=== PATIENT | female | born 1930 | race Caucasian/White ===

== ENCOUNTER 2017-02-27 10:37 | Observation (INO) | payer OTHER ==
[~2017-02-27] VITALS: Ht 152.4 cm; Wt 43.4 kg
[~2017-02-27 10:37] MED LIST: ACETAMINOPHEN325 MG PO; ACIDOPHILUS PEARLS; ASPIRIN ADULT L81 MG PO; ATENOLOL25 MG PO; BILBERRY100 MG PO; CALCIUM + D600 MG; CELEXA20 MG PO; CRANBERRY300 MG PO; CVS OMEPRAZOLE20 MG PO; FENTANYL25 MCG/HR TOP; KLOR-CON M1010 MEQ PO; MIRALAX EQUIVAL17 GM PO; MIRTAZAPINE15 MG PO; OXYCODONE HCL5 MG PO; PHENERGAN EQUIV25 MG PO; PRESERVISION AREDS; PRESERVISION AREDS PO; TRAMADOL HCL50 MG PO; VALIUM5 MG PO; ZOFRAN ODT4 MG PO
--- NOTE | 2017-02-27 11:43 | DIAGNOSTIC IMAGING REPORT ---
PROCEDURE: XR CHEST 1 VIEW INDICATION: FEVER TECHNIQUE: Single view chest. 1114 hours COMPARISON: 01/03/2016 FINDINGS: Mildly kyphotic patient. Stable cardiomediastinal contour. No central venous congestion. Interval clearance of retrocardiac and right infrahilar opacities. No acute consolidation, effusion, or pneumothorax. Demineralized osseous structures. Pedicle screws in the lower thoracic and upper lumbar vertebral bodies. IMPRESSION: 1. No acute disease. 2. Interval clearance of prior bilateral parenchymal opacities.
--- NOTE | 2017-02-27 14:42 | ED CLINICAL REPORT ---
Clinical Report - Physicians/Mid Levels [facility] [address] [place] [address] 02/27/2017 10:38 Patient: POLY LEOS Time Seen: 10:39. Arrived- By ambulance. Historian- patient and EMS personnel. HISTORY OF PRESENT ILLNESS Chief Complaint: FEVER. This started yesterday. She has had measured fever of 103 F. Temperature not treated prior to arrival. No muscle aches, loss of appetite, chest pain, dyspnea or cough. No diarrhea, skin breakdown noted or joint pain. She has had fatigue, decreased oral intake and altered mental status. No decreased urine output. She has had skin rash (Pt has zoster on her R face.). Additional history - No known contact with a sick individual. Has not recently been ill. She is not immunocompromised. No organ transplant. No recent hospitalization. No new medication recently administered. No history of cancer. No indwelling line. No recent travel. No known exposure to an animal. No drug use. No alcohol recently. No Long catheter. Similar symptoms previously: None. Recent medical care: Not recently seen/assessed. REVIEW OF SYSTEMS No anorexia, weight loss, palpitations, calf pain or sputum production. No nausea, constipation, black stools, difficulty with urination or flank pain. No vomiting, headache, sinus pain, sore throat or easy bruising. No enlarged lymph nodes, neck pain or back pain. All systems otherwise negative, except as recorded above. PAST HISTORY POLST with DNR/limited interventions. Problems: Urinary Retention. Restless Legs Syndrome. Osteoporosis. Anxiety Reaction. Hypercholesterolemia. Gerd. Parkinson's Disease. Constipation. Congestive Heart Failure. Peptic Ulcer Disease. Hypertension. Immunizations. Additional Surgeries: Back Surgery. Tonsillectomy. Tubal Ligation. Medications: Aspirin Oral (Tablet Chewable 81 mg), daily. Atenolol Oral 25 mg, daily. Bilberry Oral (Capsule 100 mg). Calcium 500/D Oral daily. CeleXA Oral 20 mg, daily. Ranitidine HCl Oral 150 mg, 2x a day. Klor-Con Oral 10 MEQ daily. TraMADol HCl Oral 50 mg, Q6H as needed. Multiple Vitamins Oral x2 daily. Cranberry Oral 300mg 1 capsule, 3x a day. Acidophilus Pearls Oral x1 in am. OxyCODONE HCl Oral (Tablet 5 mg) 2-3 tablets, at bedtime. Nystatin External. Miralax powder daily. Baclofen Oral 10 mg, 3x a day. Citrucel Oral 1 scoop twice daily. FentaNYL Transdermal 25 mcg/hr, every 72 hours. Acyclovir Oral 800 mg, x5 daily . Nortriptyline HCl Oral 10 mg, 1-2 in evening. Allergies: Daypro, elevate my liver. Lipitor. (elevated liver enzymes). SOCIAL HISTORY Never smoker. No alcohol use or drug use. ADDITIONAL NOTES The nursing notes have been reviewed. PHYSICAL EXAM Vital Signs: 02/27/2017 10:43 BP: 169/67. HR: 69. RR: 13. O2 saturation: 98%. Temp: 100.3 F. Have been reviewed. Appearance: No acute distress. ( drowsy, but answers questions). Eyes: Pupils equal, round and reactive to light. Eyes normal inspection. ENT: Nose normal. Pharynx normal. Uvula midline. Neck: Normal inspection. Neck supple. CVS: Normal heart rate and rhythm. Heart sounds normal. Pulses normal. Respiratory: No respiratory distress. Breath sounds normal. Abdomen: Soft and nontender. Back: No tenderness. Skin: Skin warm and dry. Normal skin color. Normal skin turgor. (Pt has a vesicular rash with an erythematous base on her R scalp and forehead.). Extremities: Extremities nontender. Neuro: (Pt answers questions on her own and moves all 4 extremities.). LABS, X-RAYS, AND EKG Chest X-ray: No acute disease. Normal lung markings present. Normal heart size. Mediastinum normal. Great vessels normal. Soft tissues normal. No infiltrate. No fracture. No bony lesion present. Views: AP (portable). Technique: good. The X-rays were independently viewed by me, interpreted by the radiologist and contemporaneously by me and discussed with the radiologist. A comparison with prior films reveals that the findings are unchanged. Laboratory Tests: UA-Culture if indicated: (JANY: 02/27/2017 11:45) ( MsgRcvd 02/27/2017 12:52) Final results Test Result Flag Units (Reference) URINE COLOR YELLOW URINE APPEARANCE CLEAR URINE GLUCOSE NEGATIVE (NEGATIVE) URINE BILIRUBIN NEGATIVE (NEGATIVE) URINE KETONE NEGATIVE (NEGATIVE) URINE SPECIFIC GRAVITY 1.010 (1.010-1.030) URINE PH 7.0 (5.0-8.0) URINE PROTEIN 1+ (NEGATIVE) URINE UROBILINOGEN 1.0 EU/dL (0.2-1.0) URINE NITRITE NEGATIVE (NEGATIVE) URINE BLOOD NEGATIVE (NEGATIVE) URINE LEUK ESTERASE NEGATIVE (NEGATIVE) URINE RBC NONE SEEN rbc/hpf (0-1) URINE WBC 3-5 wbc/hpf (0-1) URINE EPITHELIAL CELLS 0-1 EPI/hpf (0-5) URINE BACTERIA FEW (1+) (NONE SEEN) URINE COMMENT CULT NOT INDICATED URINE CULTURES ARE SET-UP BASED ON THE FOLLOWING CRITERIA:POSITIVE NITRITEPOSITIVE LEUKOCYTE ESTERASEGREATER THAN 10 WHITE BLOOD CELLSMODERATE (2+) OR GREATER BACTERIA CBC w Diff: (JANY: 02/27/2017 12:00) ( [facility] 13[facility]34) Final results Test Result Flag Units (Reference) WHITE BLOOD COUNT 7.1 K/uL (4.5-11.5) RED BLOOD COUNT 4.27 M/uL (4.00-5.20) HEMOGLOBIN 13.2 gm/dL (12.0-16.0) HEMATOCRIT 39.5 % (36.0-46.0) MEAN CELL VOLUME 93 fL (80-100) MEAN CORPUSCULAR HGB 31 pg (26-34) MEAN CORPUSCULAR HGB CONC 33 g/dL (31-37) RED CELL DISTRIBUTION WIDTH 13.3 % (11.6-14.8) PLATELET COUNT 184 K/uL (150-400) POLY % 71 % (50-75) BAND % 1 % (0-8) LYMPH 18 L % (25-40) MONO 10 % (3-14) EOSINOPHIL % 0 % (0-4) BASOPHIL % 0 % (0-2) METAMYELOCYTE % 0 % (0-1) MYELOCYTE 0 % (0-1) OTHER CELL TYPE 0 Lactate, Serum: (JANY: 02/27/2017 12:30) ( [facility] 02/27/2017 13:13) Final results Test Result Flag Units (Reference) LACTIC ACID 0.8 mmol/L (0.4-2.0) CMP: (JANY: 02/27/2017 12:00) ( MsgRcvd 02/27/2017 13:13) Final results Test Result Flag Units (Reference) GLUCOSE 110 mg/dL (70-110) BUN 21 H mg/dL (7-18) CREATININE 0.8 mg/dL (0.6-1.3) Estimated GFR >60 mL/min Estimated GFR- >60 mL/min Note: Persistent reduction over 3 months in eGFR<60 mL/min/1.73 m2 defines CKD. Patients with eGFR values>=60 mL/min/1.73 m2 may also have CKD if evidence ofpersistent proteinuria. Additional information may be foundat www.kidney.org. SODIUM 133 L mmol/L (136-145) POTASSIUM 3.6 mmol/L (3.5-5.1) CHLORIDE 95 L mmol/L (98-107) CARBON DIOXIDE 30 mmol/L (21-32) CALCIUM 8.9 mg/dL (8.5-10.1) TOTAL PROTEIN 6.6 g/dL (6.4-8.2) ALBUMIN 3.2 L g/dL (3.3-5.0) BILIRUBIN, TOTAL 0.5 mg/dL (0.0-1.0) ALKALINE PHOSPHATASE 72 U/L (46-116) AST (SGOT) 34 U/L (15-37) ALT (SGPT) 20 U/L (12-78) Rapid Influenza Screen: (JANY: 02/27/2017 12:25) ( MsgRcvd 02/27/2017 13:07) Final results SPECIMEN DESCRIPTION: SWAB Test Result Flag Units (Reference) RAPID INFLUENZA SCREEN DATE: 02/27/17 INFLUENZA A: NEGATIVE SCREEN FOR INFLUENZA A INFLUENZA B: NEGATIVE SCREEN FOR INFLUENZA B . Pulse Oximetry: 02/27/2017 10:43 O2 saturation: 98%. (FIO2 - room air). Interpretation: normal. PROGRESS AND PROCEDURES Course of Care: Pt was worked up for her fever, without a specific source being identified, beyond the pt's shingles outbreak. and daughter (caregiver) arrived, and stated the pt is too weak to help transfer herself, and that they can't handle her at home. They stated they do not want the pt in assisted living, even temporarily, but would be open to assistance by a home health staff. land planner Keyon did come down to the ED and speak with the family, but no arrangement could be made for this on a same-day basis (and daughter did not feel she could care for the pt tonight). Therefore, as family refused to take the pt home, feeling they could not care for her, and as pt was febrile with ALOC and cx pending, pt was admitted to the hospital. Discussed case with patient's primary care provider, (Megan). Reviewed test results. Agreed upon treatment plan and decision to admit. Health care provider will see patient in hospital. Patient and family counseled in person regarding the patient's stable but serious condition, test results, diagnosis and need for admission. Concerns were addressed. Old medical records reviewed. Disposition: Admitted. Condition: stable and serious. CLINICAL IMPRESSION Acute fever. Acute mental status change with lethargy. Acute generalized weakness. Herpes zoster. (Electronically signed by Holly Chen MD 03/01/2017 19:33) Addenda for POLY LEOS VisitID: [id number] Date: 02/27/2017 02/27/2017 15:28 87 yr old female pt in ED with chief complaint of weakness and fever. Pt has shingles and currently being treated for it. Pt has Parkinson's as well. Spoke to daughter and and they stated that pt lives with daughter. Daughter is the primary caregiver and takes care of pt. Pt requires assistance with transfer and toileting but per daughter pt is so weak she can't even swallow or stand up. Daughter's goal is to take pt back home, they are not open to going to SNF or assisted living. Informed her that pt will not recover overnight and pt will still be weak. Per daughter as long as pt can start drinking then she can take pt home and cont taking care of her. Explained OBS vs Inpatient to daughter and she understood. Spoke to Dr Guzman and his plan is to keep pt overnight for observation and will dc home with home health in the morning. Daughter is aware and okay with the plan. They want [facility] to follow pt at home. Will f/u with pt when she is in Acute Care. (Electronically signed by Keyon Cardozo R.N. - 02/27/2017 15:28)
--- NOTE | 2017-02-27 14:42 | ED NURSING NOTES ---
Clinical Report - Nurs[facility] [address] [place] [address] 02/27/2017 10:38 Patient: POLY LEOS TRIAGE Triage time 10:43. Acuity: LEVEL 3. Chief Complaint: ALTERED MENTAL STATUS and (fever and shingles). Alert. No acute distress. SEPSIS SCREEN: Sepsis Screen. Negative (no infection suspected/documented). ERICA COMA SCORE: Erica Coma Scale: 14- eyes open spontaneously (4); best verbal response- disoriented (4); best motor response- obeys commands (6). --11:00 Ekta Hollis R.N. 10:43 02/27/17. BP: 169/67. HR: 69. RR: 13. O2 saturation: 98%. Temp: 100.3 F. Pain level now 0/10. --11:00 Ekta Hollis R.N. ( Pt. states she is at the hospital on triage but will not answer further questioning. Family states she has a hard time communicating lately and has had memory loss. She is also incontinent of stool and urine since Saturday.). --11:12 Ekta Hollis R.N. 10:43. --13:37 Ekta Hollis R.N. Weight: 49.8 kg estimated. Height/Length: 64 inches Estimated. BMI: 18.9. --10:45 Ekta Hollis R.N. Medications Nortriptyline HCl Oral 10 mg, 1-2 in evening. --10:50 Ekta Hollis R.N. Acyclovir Oral 800 mg, x5 daily . --10:51 Ekta Hollis R.N. FentaNYL Transdermal 25 mcg/hr, every 72 hours. --10:51 Ekta Hollis R.N. Citrucel Oral 1 scoop twice daily. --10:52 Ekta Hollis R.N. Baclofen Oral 10 mg, 3x a day. --10:52 Ekta Hollis R.N. Miralax powder daily. --10:53 Ekta Hollis R.N. Nystatin External. --10:53 Ekta Hollis R.N. OxyCODONE HCl Oral (Tablet 5 mg) 2-3 tablets, at bedtime. --10:53 Ekta Hollis R.N. Acidophilus Pearls Oral x1 in am. --10:54 Ekta Hollis R.N. Cranberry Oral 300mg 1 capsule, 3x a day. --10:55 Ekta Hollis R.N. Multiple Vitamins Oral x2 daily. --10:55 Ekta Hollis R.N. TraMADol HCl Oral 50 mg, Q6H as needed. --10:55 Ekta Hollis R.N. Klor-Con Oral 10 MEQ daily. --10:56 Ekta Hollis R.N. Ranitidine HCl Oral 150 mg, 2x a day. --10:56 Ekta Hollis R.N. CeleXA Oral 20 mg, daily. --10:57 Ekta Hollis R.N. Calcium 500/D Oral daily. --10:57 Ekta Hollis R.N. Bilberry Oral (Capsule 100 mg). --10:58 Ekta Hollis R.N. Atenolol Oral 25 mg, daily. --10:58 Ekta Hollis R.N. Aspirin Oral (Tablet Chewable 81 mg), daily. --10:58 Ekta Hollis R.N. Allergies Daypro, elevate my liver. Lipitor. (elevated liver enzymes) --10:58 Ekta Hollis R.N. History Arrived by EMS. Historian: patient. Unaccompanied. Primary physician (Megan). This started 2 days ago. ( Pt. has a polst on chart: DNR). Treatment HOCKEY INSTRUCTOR: None. ( per EMS: pt has had a fever of 103.0 at home since mon. She usually walks around the home and is more active but she has had decreased LOC since mon.). PAST MEDICAL HX: Immunizations: up-to-date. SOCIAL HX: Smoker - current status unknown. Alcohol use. (unknown). No infectious disease exposure. ABUSE ASSESSMENT: No report of abuse. NUTRITIONAL RISK ASSESSMENT: The nutritional risk assessment revealed no deficiencies. LEARNING NEEDS ASSESSMENT: The learning needs assessment revealed no barriers. FUNCTIONAL ASSESSMENT: Functional assessment performed: requires total care with the activities of daily living; cognitive impairment- Alzheimer's disease and senile dementia. --11:00 Ekta Hollis R.N. SOCIAL HX: Smoker- current status unknown. No alcohol use or drug use. FUNCTIONAL ASSESSMENT: Functional assessment performed. family at the bedside: correctio to prior: pt. is total care and does not ambulated. She can assist with transfer. Has memory loss and difficulty feeding herself. --11:08 Ekta Hollis R.N. FALL RISK ASSESSMENT: Fall risk assessment completed per protocol. Risk factors identified include patient medications, age greater than 65 years, history of fall and impairment of mobility, sight and hearing. Fall interventions initiated. Patient placed on stretcher. Side rails up x2. Brakes on Bed in low position. Patient visible from nurses' station and identified as a fall risk by ID band. Family at bedside. Call light in reach of patient and family. Instructed not to get up without assistance. --13:37 Ekta Hollis R.N. PROBLEMS: Hematuria. Aspiration Pneumonia. Diarrhea. Urinary Retention. Restless Legs Syndrome. Osteoporosis. Pneumonia. Anxiety Reaction. Hypercholesterolemia. Gerd. Parkinson's Disease. Constipation. Dysuria. Back Pain. Congestive Heart Failure. Hyponatremia. Weakness. UTI - Urinary Tract Infection. Peptic Ulcer Disease. Hypertension. --10:59 Ekta Hollis R.N. ADDITIONAL SURGERIES: Back Surgery. Tonsillectomy. Tubal Ligation. --10:59 Ekta Hollis R.N. Interventions ID band on patient. Transported via stretcher. --11:00 Ekta Hollis R.N. PHYSICAL ASSESSMENT To room via stretcher. GENERAL / NEURO / PSYCH: Alert. Appears in no acute distress. The patient is disoriented (pt is alert but confused.). Patient's speech is slurred. RESPIRATORY: Respirations not labored. CVS: Capillary refill less than 2 seconds. GI / : Abdomen soft and nontender. SKIN: Skin is warm and dry. --11:02 Ekta Hollis R.N. SKIN: Skin rash (right side of face). --11:09 Ekta Hollis R.N. SKIN: Skin breakdown noted on coccyx; pressure sore with shallow crater (Stage II) noted. (HOCKEY INSTRUCTOR: pictures documented and in chart.). --12:25 Ekta Hollis R.N. NURSING PROGRESS NOTES 10:43. monitoring engineer, pulse oximeter and NIBP monitor placed on patient; child monitor- Lead II; monitor alarms on. Patient gowned. Head of bed elevated. Two patient identifiers checked. Call light placed in reach. Side rails up x 2. Bed placed in lowest position. Brakes of bed on. Patient ready for evaluation- chart flagged. --11:02 Ekta Hollis R.N. Portable chest x-ray ordered, performed and shown to the ED physician. --11:13 Ekta Hollis R.N. 11:09 02/27/2017 Two (2) unsuccessful IV access attempts including the left antecubital space and forearm. Applied bandaid and manual pressure. --11:14 Pema Messer R.N. 11:15. 14 fr fields catheter placed. Reason for indwelling catheter: patient's decreased level of consciousness. During procedure hand hygiene observed and sterile equipment and aseptic technique used. Return of 100 mL yellow-colored clear urine; attached to bedside drainage bag positioned below the bladder and secured with tape and velcro. It was a complicated placement. She tolerated procedure well (x2 unsuccessful attemts. X2 Rns assisted with fields placement). --12:20 Ekta Hollis R.N. 11:16 02/27/17. Temp: 101 F (rectal). --12:21 Ekta Hollis R.N. 11:16 02/27/2017 Acetaminophen (Peds) (Acetaminophen) MA 650 mg given. Allergies verified and confirmed 5 rights. (v.o. by provider for 650mg MA). --12:21 Ekta Hollis R.N. 11:22 02/27/2017 Site #1 started via IV in the right antecubital space with an 22g angiocath, with aseptic technique and good blood return; one attempt. Blood drawn: rainbow set and cultures x1. Labeled in the presence of the patient and sent to the lab. Saline lock flushed with 10 mL saline (lactate drawn.). --12:22 Ekta Hollis R.N. 11:25 02/27/2017 Started bag #1 1000 mL IV Fluids IV NS (Saline); at 1000 mL/hr over 1 hour(s) via site #1 via IV pump. Allergies verified and confirmed 5 rights. IV patency established. IV site checked: no pain, redness, or swelling. IV flushed thoroughly pre- and post-medication administration. --12:23 Ekta Hollis R.N. 11:26 02/27/2017 Toradol IVP 30 mg given over 2 minute(s) via site #1. Allergies verified and confirmed 5 rights. IV patency established. IV site checked: no pain, redness, or swelling. IV flushed thoroughly pre- and post-medication administration. --12:23 Ekta Hollis R.N. 12:00. ( changed pt. linens and repositioned pt. to left side lying. X1 2 RN's assisted.). --12:24 Ekta Hollis R.N. 12:25 02/27/17. BP: 187/61. HR: 70. RR: 14. O2 saturation: 97%. --12:25 Ekta Hollis R.N. Patient ID band checked for patient name, birthdate and medical record number: patient confirmed. Flu swab obtained by RN via nasal pharyngeal swab. Labeled in the presence of the patient and sent to lab. --12:28 Ekta Hollis R.N. ( lab at the bedside to draw cultures.). --12:28 Ekta Hollis R.N. 12:30 02/27/2017 IV Fluids IV NS Discontinued: bag #1 infused. Total amount infused: 1000 mL. IV patency established. IV site checked: no pain, redness, or swelling. IV flushed thoroughly. --14:47 Ekta Hollis R.N. 13:24 02/27/2017 Acyclovir PO 800 mg given. Allergies verified and confirmed 5 rights. --13:24 Ekta Hollis R.N. ( repositioned pt. to right side lying. x2 Rns.). --13:31 Ekta Hollis R.N. 13:24 02/27/17. BP: 188/81. HR: 97. RR: 16. O2 saturation: 97%. --13:31 Ekta Hollis R.N. ( H/P forms on chart.). --14:25 Nathalie Gustafsonraine, [employer]! Patient and family informed about reason for wait. ( pt. resting quietly.). --15:01 Ekta Hollis R.N. 15:00 02/27/17. BP: 171/68. HR: 75. RR: 17. O2 saturation: 97%. --15:01 Ekta Hollis R.N. ( discharge planning at the bedside with pt and family.). --15:05 Ekta Hollis R.N. ( overview faxed to ICU). --15:32 Nathalie Gustafsonraine, Tech1. Intake & Output IV fluids: 1000 units. Urine, with return of 500 mL yellow-colored clear urine. --16:05 Ekta Hollis R.N. DISPOSITION / DISCHARGE Report was given to a nurse. Report included patient's care, treatment, medications, reviewed medication reconcilliation, and condition (including any recent changes or anticipated changes). All questions were answered. --15:59 Ekta Hollis R.N. Admitted to the Critical Care Unit. --15:59 Ekta Hollis R.N. 16:01 02/27/17. BP: 168/63. HR: 82. RR: 24. O2 saturation: 98%. Temp: 99.1 F. Pain level now 0/10. --16:02 Ekta Hollis R.N. 16:02 02/27/2017 Site #[address] upon admission; patent, no pain and no signs of infiltration. No blood return present. Flushed with 10 mL saline; flushes easily. --16:02 Ekta Hollis R.N. 16:20. Patient's personal items; items were placed in belongings bag and given to the family. --16:37 Ekta Hollis R.N. 16:20. Transported via stretcher by nurse. --16:37 Telma, Ekta, R.N. Locked/Released at 02/27/2017 16:37 by Ekta Hollis R.N.
--- NOTE | 2017-02-27 14:42 | ED ORDER SUMMARY ---
..... Patient: POLY LEOS OrderSheet [facility] VisitID: [id number] [address] [place] [address] 87y, F Registration Date/Time: 02/27/2017 ORDER SHEET Weight: 49.8 kg (estimated) Allergies: Daypro, elevate my liver, Lipitor GENERAL ORDERS: Chest 1V Urgent (10:53 02/27/2017 Jennie WOOD) (Ack 10:57 LNations ER Tech1) (11:13 SReitz R.N.) Administrative Library Assistant (Continuous) (10:53 02/27/2017 Jennie WOOD) (Ack 10:56 LNations ER Tech1) (11:13 SReitz R.N.) Rapid Influenza Screen (Nasal Pharyngeal) (swab) Urgent (10:53 02/27/2017 Jennie WOOD) (Ack 10:57 LNations ER Tech1) (12:27 SReitz R.N.) CBC w Diff Urgent (10:54 02/27/2017 Jennie WOOD) (Ack 10:56 LNations ER Tech1) (12:14 SReitz R.N.) CMP Urgent (10:54 02/27/2017 Jennie WOOD) (Ack 10:56 LNations ER Tech1) (12:14 SReitz R.N.) UA-Culture if indicated Urgent (10:54 02/27/2017 Jennie WOOD) (Ack 10:56 LNations ER Tech1) (12:14 SReitz R.N.) Lactate, Serum Urgent (10:54 02/27/2017 Jennie WOOD) (Ack 10:57 LNations ER Tech1) (12:14 SReitz R.N.) Oxygen (2 L/min) (NC) (10:54 02/27/2017 Jennie WOOD) (Ack 10:56 LNations ER Tech1) (12:23 SReitz R.N.) Pulse oximeter (10:54 02/27/2017 Jennie WOOD) (Ack 10:56 LNations ER Tech1) (11:13 SReitz R.N.) Blood Culture (No) (N/A) Urgent (13:19 02/27/2017 Jennie WOOD) (Ack 13:21 LNations ER Tech1) (13:35 SReitz R.N.) MEDICATION ORDERS: Acetaminophen PO 1,000 mg (NOW) (10:53 02/27/2017 Jennie WOOD) (Ack 11:16 Franklin R.N.) (12:21 Franklin R.N.) Acyclovir PO 800 mg (NOW) (13:00 02/27/2017 Franklin R.N. verbal order read back to Jennie WOOD) (Ack 13:01 Franklin R.N.) (13:24 Franklin R.N.) IV FLUIDS: IV NS : initial bolus 1000 mL (1000 mL/hr), then none - (NOW) (10:53 02/27/2017 Jennie WOOD) (Ack 11:16 Franklin R.N.) (12:23 Franklin R.N.) Toradol IV 30 mg (NOW) (10:53 02/27/2017 Jennie WOOD) (Ack 11:16 Franklin R.N.) (12:23 Franklin R.N.) ORDER SHEET NOTES: [Electronically signed by Ekta Hollis R.N. (16:37 02/27/2017)] [Electronically signed by Holly Chen MD (19:33 03/01/2017)] [Electronically locked/signed by Ekta Hollis R.N. (16:37 02/27/2017)]
--- NOTE | 2017-02-27 14:42 | ED ORDER SUMMARY ---
..... Patient: POLY LEOS OrderSheet [facility] VisitID: [id number] [address] [place] [address] 87y, F Registration Date/Time: 02/27/2017 ORDER SHEET Weight: 49.8 kg (estimated) Allergies: Daypro, elevate my liver, Lipitor GENERAL ORDERS: Chest 1V Urgent (10:53 02/27/2017 Jennie WOOD) (Ack 10:57 LNations ER Tech1) (11:13 SReitz R.N.) Drawing Kiln Supervisor (Continuous) (10:53 02/27/2017 Jennie WOOD) (Ack 10:56 LNations ER Tech1) (11:13 SReitz R.N.) Rapid Influenza Screen (Nasal Pharyngeal) (swab) Urgent (10:53 02/27/2017 Jennie WOOD) (Ack 10:57 LNations ER Tech1) (12:27 SReitz R.N.) CBC w Diff Urgent (10:54 02/27/2017 Jennie WOOD) (Ack 10:56 LNations ER Tech1) (12:14 SReitz R.N.) CMP Urgent (10:54 02/27/2017 Jennie WOOD) (Ack 10:56 LNations ER Tech1) (12:14 SReitz R.N.) UA-Culture if indicated Urgent (10:54 02/27/2017 Jennie WOOD) (Ack 10:56 LNations ER Tech1) (12:14 SReitz R.N.) Lactate, Serum Urgent (10:54 02/27/2017 Jennie WOOD) (Ack 10:57 LNations ER Tech1) (12:14 SReitz R.N.) Oxygen (2 L/min) (NC) (10:54 02/27/2017 Jennie WOOD) (Ack 10:56 LNations ER Tech1) (12:23 SReitz R.N.) Pulse oximeter (10:54 02/27/2017 Jennie WOOD) (Ack 10:56 LNations ER Tech1) (11:13 SReitz R.N.) Blood Culture (No) (N/A) Urgent (13:19 02/27/2017 Jennie WOOD) (Ack 13:21 LNations ER Tech1) (13:35 SReitz R.N.) MEDICATION ORDERS: Acetaminophen PO 1,000 mg (NOW) (10:53 02/27/2017 Jennie WOOD) (Ack 11:16 Franklin R.N.) (12:21 Franklin R.N.) Acyclovir PO 800 mg (NOW) (13:00 02/27/2017 Franklin R.N. verbal order read back to Jennie WOOD) (Ack 13:01 Franklin R.N.) (13:24 Franklin R.N.) IV FLUIDS: IV NS : initial bolus 1000 mL (1000 mL/hr), then none - (NOW) (10:53 02/27/2017 Jennie WOOD) (Ack 11:16 Franklin R.N.) (12:23 Franklin R.N.) Toradol IV 30 mg (NOW) (10:53 02/27/2017 Jennie WOOD) (Ack 11:16 Franklin R.N.) (12:23 Franklin R.N.) ORDER SHEET NOTES: [Electronically signed by Ekta Hollis R.N. (16:37 02/27/2017)] [Electronically signed by Holly Chen MD (19:33 03/01/2017)] [Electronically locked/signed by Ekta Hollis R.N. (16:37 02/27/2017)]
--- NOTE | 2017-02-27 14:42 | ED NURSING NOTES ---
Clinical Report - Nurses [facility] [address] [place] [address] 02/27/2017 10:38 Patient: POLY LEOS TRIAGE Triage time 10:43. Acuity: LEVEL 3. Chief Complaint: ALTERED MENTAL STATUS and (fever and shingles). Alert. No acute distress. SEPSIS SCREEN: Sepsis Screen. Negative (no infection suspected/documented). ERICA COMA SCORE: Erica Coma Scale: 14- eyes open spontaneously (4); best verbal response- disoriented (4); best motor response- obeys commands (6). --11:00 Ekta Hollis R.N. 10:43 02/27/17. BP: 169/67. HR: 69. RR: 13. O2 saturation: 98%. Temp: 100.3 F. Pain level now 0/10. --11:00 Ekta Hollis R.N. ( Pt. states she is at the hospital on triage but will not answer further questioning. Family states she has a hard time communicating lately and has had memory loss. She is also incontinent of stool and urine since Saturday.). --11:12 Ekta Hollis R.N. 10:43. --13:37 Ekta Hollis R.N. Weight: 49.8 kg estimated. Height/Length: 64 inches Estimated. BMI: 18.9. --10:45 Ekta Hollis R.N. Medications Nortriptyline HCl Oral 10 mg, 1-2 in evening. --10:50 Ekta Hollis R.N. Acyclovir Oral 800 mg, x5 daily . --10:51 Ekta Hollis R.N. FentaNYL Transdermal 25 mcg/hr, every 72 hours. --10:51 Ekta Hollis R.N. Citrucel Oral 1 scoop twice daily. --10:52 Ekta Hollis R.N. Baclofen Oral 10 mg, 3x a day. --10:52 Ekta Hollis R.N. Miralax powder daily. --10:53 Ekta Hollis R.N. Nystatin External. --10:53 Ekta Hollis R.N. OxyCODONE HCl Oral (Tablet 5 mg) 2-3 tablets, at bedtime. --10:53 Ekta Hollis R.N. Acidophilus Pearls Oral x1 in am. --10:54 Ekta Hollis R.N. Cranberry Oral 300mg 1 capsule, 3x a day. --10:55 Ekta Hollis R.N. Multiple Vitamins Oral x2 daily. --10:55 Ekta Hollis R.N. TraMADol HCl Oral 50 mg, Q6H as needed. --10:55 Ekta Hollis R.N. Klor-Con Oral 10 MEQ daily. --10:56 Ekta Hollis R.N. Ranitidine HCl Oral 150 mg, 2x a day. --10:56 Ekta Hollis R.N. CeleXA Oral 20 mg, daily. --10:57 Ekta Hollis R.N. Calcium 500/D Oral daily. --10:57 Ekta Hollis R.N. Bilberry Oral (Capsule 100 mg). --10:58 Ekta Hollis R.N. Atenolol Oral 25 mg, daily. --10:58 Ekta Hollis R.N. Aspirin Oral (Tablet Chewable 81 mg), daily. --10:58 Ekta Hollis R.N. Allergies Daypro, elevate my liver. Lipitor. (elevated liver enzymes) --10:58 Ekta Hollis R.N. History Arrived by EMS. Historian: patient. Unaccompanied. Primary physician (Megan). This started 2 days ago. ( Pt. has a polst on chart: DNR). Treatment BURR PICKER: None. ( per EMS: pt has had a fever of 103.0 at home since mon. She usually walks around the home and is more active but she has had decreased LOC since mon.). PAST MEDICAL HX: Immunizations: up-to-date. SOCIAL HX: Smoker - current status unknown. Alcohol use. (unknown). No infectious disease exposure. ABUSE ASSESSMENT: No report of abuse. NUTRITIONAL RISK ASSESSMENT: The nutritional risk assessment revealed no deficiencies. LEARNING NEEDS ASSESSMENT: The learning needs assessment revealed no barriers. FUNCTIONAL ASSESSMENT: Functional assessment performed: requires total care with the activities of daily living; cognitive impairment- Alzheimer's disease and senile dementia. --11:00 Ekta Hollis R.N. SOCIAL HX: Smoker- current status unknown. No alcohol use or drug use. FUNCTIONAL ASSESSMENT: Functional assessment performed. family at the bedside: correctio to prior: pt. is total care and does not ambulated. She can assist with transfer. Has memory loss and difficulty feeding herself. --11:08 Ekta Hollis R.N. FALL RISK ASSESSMENT: Fall risk assessment completed per protocol. Risk factors identified include patient medications, age greater than 65 years, history of fall and impairment of mobility, sight and hearing. Fall interventions initiated. Patient placed on stretcher. Side rails up x2. Brakes on Bed in low position. Patient visible from nurses' station and identified as a fall risk by ID band. Family at bedside. Call light in reach of patient and family. Instructed not to get up without assistance. --13:37 Ekta Hollis R.N. PROBLEMS: Hematuria. Aspiration Pneumonia. Diarrhea. Urinary Retention. Restless Legs Syndrome. Osteoporosis. Pneumonia. Anxiety Reaction. Hypercholesterolemia. Gerd. Parkinson's Disease. Constipation. Dysuria. Back Pain. Congestive Heart Failure. Hyponatremia. Weakness. UTI - Urinary Tract Infection. Peptic Ulcer Disease. Hypertension. --10:59 Ekta Hollis R.N. ADDITIONAL SURGERIES: Back Surgery. Tonsillectomy. Tubal Ligation. --10:59 Ekta Hollis R.N. Interventions ID band on patient. Transported via stretcher. --11:00 Ekta Hollis R.N. PHYSICAL ASSESSMENT To room via stretcher. GENERAL / NEURO / PSYCH: Alert. Appears in no acute distress. The patient is disoriented (pt is alert but confused.). Patient's speech is slurred. RESPIRATORY: Respirations not labored. CVS: Capillary refill less than 2 seconds. GI / : Abdomen soft and nontender. SKIN: Skin is warm and dry. --11:02 Ekta Hollis R.N. SKIN: Skin rash (right side of face). --11:09 Ekta Hollis R.N. SKIN: Skin breakdown noted on coccyx; pressure sore with shallow crater (Stage II) noted. (BURR PICKER: pictures documented and in chart.). --12:25 Ekta Hollis R.N. NURSING PROGRESS NOTES 10:43. quality assurance monitor body, pulse oximeter and NIBP monitor placed on patient; classroom monitor- Lead II; monitor alarms on. Patient gowned. Head of bed elevated. Two patient identifiers checked. Call light placed in reach. Side rails up x 2. Bed placed in lowest position. Brakes of bed on. Patient ready for evaluation- chart flagged. --11:02 Ekta Hollis R.N. Portable chest x-ray ordered, performed and shown to the ED physician. --11:13 Ekta Hollis R.N. 11:09 02/27/2017 Two (2) unsuccessful IV access attempts including the left antecubital space and forearm. Applied bandaid and manual pressure. --11:14 Pema Messer R.N. 11:15. 14 fr fields catheter placed. Reason for indwelling catheter: patient's decreased level of consciousness. During procedure hand hygiene observed and sterile equipment and aseptic technique used. Return of 100 mL yellow-colored clear urine; attached to bedside drainage bag positioned below the bladder and secured with tape and velcro. It was a complicated placement. She tolerated procedure well (x2 unsuccessful attemts. X2 Rns assisted with fields placement). --12:20 Ekta Hollis R.N. 11:16 02/27/17. Temp: 101 F (rectal). --12:21 Ekta Hollis R.N. 11:16 02/27/2017 Acetaminophen (Peds) (Acetaminophen) NM 650 mg given. Allergies verified and confirmed 5 rights. (v.o. by provider for 650mg NM). --12:21 Ekta Hollis R.N. 11:22 02/27/2017 Site #1 started via IV in the right antecubital space with an 22g angiocath, with aseptic technique and good blood return; one attempt. Blood drawn: rainbow set and cultures x1. Labeled in the presence of the patient and sent to the lab. Saline lock flushed with 10 mL saline (lactate drawn.). --12:22 Ekta Hollis R.N. 11:25 02/27/2017 Started bag #1 1000 mL IV Fluids IV NS (Saline); at 1000 mL/hr over 1 hour(s) via site #1 via IV pump. Allergies verified and confirmed 5 rights. IV patency established. IV site checked: no pain, redness, or swelling. IV flushed thoroughly pre- and post-medication administration. --12:23 Ekta Hollis R.N. 11:26 02/27/2017 Toradol IVP 30 mg given over 2 minute(s) via site #1. Allergies verified and confirmed 5 rights. IV patency established. IV site checked: no pain, redness, or swelling. IV flushed thoroughly pre- and post-medication administration. --12:23 Ekta Hollis R.N. 12:00. ( changed pt. linens and repositioned pt. to left side lying. X1 2 RN's assisted.). --12:24 Ekta Hollis R.N. 12:25 02/27/17. BP: 187/61. HR: 70. RR: 14. O2 saturation: 97%. --12:25 Ekta Hollis R.N. Patient ID band checked for patient name, birthdate and medical record number: patient confirmed. Flu swab obtained by RN via nasal pharyngeal swab. Labeled in the presence of the patient and sent to lab. --12:28 Ekta Hollis R.N. ( lab at the bedside to draw cultures.). --12:28 Ekta Hollis R.N. 12:30 02/27/2017 IV Fluids IV NS Discontinued: bag #1 infused. Total amount infused: 1000 mL. IV patency established. IV site checked: no pain, redness, or swelling. IV flushed thoroughly. --14:47 Ekta Hollis R.N. 13:24 02/27/2017 Acyclovir PO 800 mg given. Allergies verified and confirmed 5 rights. --13:24 Ekta Hollis R.N. ( repositioned pt. to right side lying. x2 Rns.). --13:31 Ekta Hollis R.N. 13:24 02/27/17. BP: 188/81. HR: 97. RR: 16. O2 saturation: 97%. --13:31 Ekta Hollis R.N. ( H/P forms on chart.). --14:25 Nathalie Gustafsonraine, [employer] Patient and family informed about reason for wait. ( pt. resting quietly.). --15:01 Ekta Hollis R.N. 15:00 02/27/17. BP: 171/68. HR: 75. RR: 17. O2 saturation: 97%. --15:01 Ekta Hollis R.N. ( discharge planning at the bedside with pt and family.). --15:05 Ekta Hollis R.N. ( overview faxed to ICU). --15:32 Nathalie Gustafsonraine, Tech1. Intake & Output IV fluids: 1000 units. Urine, with return of 500 mL yellow-colored clear urine. --16:05 Ekta Hollis R.N. DISPOSITION / DISCHARGE Report was given to a nurse. Report included patient's care, treatment, medications, reviewed medication reconcilliation, and condition (including any recent changes or anticipated changes). All questions were answered. --15:59 Ekta Hollis R.N. Admitted to the Critical Care Unit. --15:59 Ekta Hollis R.N. 16:01 02/27/17. BP: 168/63. HR: 82. RR: 24. O2 saturation: 98%. Temp: 99.1 F. Pain level now 0/10. --16:02 Ekta Hollis R.N. 16:02 02/27/2017 Site #[address] upon admission; patent, no pain and no signs of infiltration. No blood return present. Flushed with 10 mL saline; flushes easily. --16:02 Ekta Hollis R.N. 16:20. Patient's personal items; items were placed in belongings bag and given to the family. --16:37 Ekta Hollis R.N. 16:20. Transported via stretcher by nurse. --16:37 Telma, Ekta, R.N. Locked/Released at 02/27/2017 16:37 by Ekta Hollis R.N.
[2017-02-27 16:23] VITALS: BP 180/66
[2017-02-27 18:18] VITALS: BP 154/65
[2017-02-27] MEDS ORDERED: ACYCLOVIR200 MG PO (18:24)
[2017-02-27] MEDS ORDERED: NORTRIPTYLINE H10 MG PO (18:24)
[2017-02-27] MEDS ORDERED: BACLOFEN10 MG PO (18:31)
[2017-02-27] MEDS ORDERED: CITRUCEL FIBER LAXAT (18:32)
[2017-02-27] MEDS ORDERED: FENTANYL25 MCG/HR TOP (18:33)
--- NOTE | 2017-02-27 18:34 | Progress Note ---
Subjective General 87y.o. female with fever at home with hx of recent dx of shingles. Has reddness at the forhead. Hx of weakness, chronic back pain, and ? aspiration. Is not interested in being coded, is not interested in a usp even for short term placement. Is ok with home health services. A/P: shingles, chronic pain, fevers, cellulitis face. Plan: continue home meds, home health with d/c planning and PT eval. Likely home in am with services. Goal for comfort. Has some eye reddness / swelling and will have optho eval for her shingles.
--- NOTE | 2017-02-27 18:34 | Progress Note ---
Subjective General 87y.o. female with fever at home with hx of recent dx of shingles. Has reddness at the forhead. Hx of weakness, chronic back pain, and ? aspiration. Is not interested in being coded, is not interested in a assisted even for short term placement. Is ok with home health services. A/P: shingles, chronic pain, fevers, cellulitis face. Plan: continue home meds, home health with d/c planning and PT eval. Likely home in am with services. Goal for comfort. Has some eye reddness / swelling and will have optho eval for her shingles.
--- NOTE | 2017-02-27 18:38 | NUR ---
PT admitted to room 306. Has swollen, reddened, scaly area on R side of face, into her forhead and hairline. Pt. able to respond to questions but is difficult to understand. Voice is garbled at times. Pt. also has gurgly cough, attempt was made to feed pt. a pureed diet, but pt. showed signs of swallowing difficulty, coughing frequently. Was oral suctioned for creamy, thick secretions. Family was with pt.
--- NOTE | 2017-02-27 21:51 | NUR ---
PER CONVERSATION WITH FAMILY AND MD, PT IS COMFORT CARE. PT IS CHOKING/COUGHING WITH SIPS OF WATER, THEREFORE WE WILL KEEP NPO EXCEPT REQUESTED BY PATIENT. PT ABLE TO TAKE OXYCODONE WITH SOME DIFFICULTY, REFUSED OTHER MEDS. TURNS, ORAL CARE Q2H. ON WAFFLE MATTRESS. PT IS IN SIGHT OF NURSES STATION AND WILL BE ROUNDED ON HOURLY, AT MINIMUM. APPEARS COMFORTABLE AT THIS TIME. SLEEPING QUIETLY. WILL MONITOR.
[2017-02-27 23:09] VITALS: BP 155/68
[2017-02-28 03:02] VITALS: BP 175/62
--- NOTE | 2017-02-28 06:35 | HISTORY AND PHYSICAL ---
ADMITTED: 02/27/2017 CHIEF COMPLAINT: 1. Weakness 2. Shingles 3. Fever 4. Cellulitis HISTORY OF PRESENT ILLNESS: The patient is an 87-year-old female who has a recent diagnosis of shingles on her face, right side, seen in the clinic. She has been feeling worse and getting weaker progressively over the last years, but also severely over the last week. In the clinic, she was treated with some acyclovir and some nortriptyline, though after she started treatment, she was not eating and/or drinking and getting weaker, went to the emergency department for further evaluation. Her long-term status has been status quo for a number of years. She has been on chronic fentanyl and chronic pain medicines with the goal of comfort and not for prolongation for a number of years now, in the hospital with her fluid status so low, she was noted to have a consistent and worse coughing with any eating and drinking and likely aspiration. Discussion with family, the and daughter was regarding whether or not she would want us to use IV fluids, whether or not she would want us to use nutrition by tube, whether or not we would want to put a G-tube in, whether or not there was anything else that we could do with her at this point for her medical care. After a prolonged discussion and the discussion with her as well, the decision was made that she would like to not have any IV fluids, that she would like to go home on hospice in the morning. MEDICAL/SURGICAL HISTORY: Past medical history: She has been with multiple medical problems; hematuria, back pain, aspiration pneumonia, parkinsonism, decubitus ulcer, constipation, edema, GERD, restless leg syndrome, anxiety, osteoporosis, fatigue , nausea, abdominal pain, urinary retention and urinary tract infections. Past surgical history: She has had tonsillectomy, appendectomy, tubal ligation, lumbar laminectomy, having breast biopsy. MEDICATIONS: 1. DuoDERM as she has just been started with the finding of the buttocks sore. 2. Nortriptyline 10 mg 1-2 at bedtime for her pain related to the new shingles. 3. Acyclovir 800 mg p.o. 5 times a day x7 days. 4. Fentanyl 25 mcg patch transdermal q.3 days. 5. Citrucel powder 1 scoop b.i.d. 6. Baclofen 10 mg p.o. t.i.d. as needed for muscle spasms. 7. MiraLAX 17 g p.o. daily with a large glass of water. 8. Nystatin/zinc/Maalox/docusate combination cream, apply to the buttocks 3 times a day as needed. 9. Oxycodone 5 mg p.o. 2-3 by mouth daily prior to bed. 10. Stool softener/docusate 100 mg b.i.d. 11. Acidophilus pearls one p.o. q.a.m. 12. Cranberry 300 mg p.o. t.i.d. 13. Preservation oral caps 2 p.o. a.m., 2 p.o. p.m. 14. Mirtazapine 15 mg p.o. at bedtime. 15. Tramadol 50 mg p.o. q.6 hours p.r.n. pain. 16. Klor-Con 10 mEq p.o. daily. 17. Ranitidine 150 mg p.o. b.i.d. 18. Celexa 20 mg p.o. daily. 19. Calcium 600 mg/vitamin B combination 1 p.o. daily. 20. Bilberry 100 mg caps daily. 21. Atenolol 25 mg daily. 22. Aspirin 81 mg daily. ALLERGIES: 1. ATORVASTATIN. 2. FLUOXETINE. 3. OXCARBAZEPINE. 4. LEVAQUIN. 5. DAYPRO. SOCIAL HISTORY: She is . Spiritism. She quit smoking in 1967. She denies any alcohol or drug use. FAMILY HISTORY: Noncontributory. Brother had of cancer and sister had heart disease. REVIEW OF SYSTEMS: She has got chronic back pain and is very kyphotic with lots of muscle spasms and this has been going on for years. She has had parkinsonism. She has got a sore on her buttock, associated with severe pain and muscle spasms, especially at nighttime. She is wheelchair-bound during the daytime and has issues with incontinence as well. PHYSICAL EXAMINATION: VITAL SIGNS: Her blood pressure was 169/67, heart rate of 69, respirations 18, saturating 100%, temperature 100.3 in the emergency department. GENERAL: She is an alert female who is able to communicate adequately and appropriately with me. HEENT: She has got markedly swollen blistered right side of the face with redness as well from her forehead down to her right eyelid. The right eye has some swelling and inflammation on the actual eyeball as well. She has no problems opening the mouth. She has got dry mucous membranes. NECK: Supple without lymphadenopathy. LUNGS: With coarse breath sounds bilaterally. HEART: Regular rate and rhythm. ABDOMEN: Soft, very thin, nontender. GENITOURINARY: Deferred. RECTAL: Deferred. BREASTS: Deferred. NEUROLOGIC: Cranial nerves II-XII are intact. Her strength and sensation are grossly decreased in her lower extremities. She is able to move all, but she is very weak. LAB/IMAGING: Chest x-ray: Shows no acute process. Her urinalysis was normal. White count of 7.1, hematocrit 39.5, and platelets of 184,000. Lactic acid 0.8, glucose 110, BUN 21, creatinine of 0.8, sodium 133, potassium 3.6, chloride of 95, HCO3 30, calcium 8.9, total protein 6.6. Albumin 3.2, total bili 0.5, alk phos 72, AST of 32, ALT of 20. Influenza A and B were negative. IMPRESSION/PLAN: 1. This is an 87-year-old female who presents to emergency department with progressive weakness, decreased p.o. in the face of relatively new shingles and also some likely cellulitis of her right face, had fevers at home. She has got a long history of difficulty with swallowing and parkinsonism and also chronic pain and muscle spasms. The goals for comfort. After a long discussion with family and the patient. The patient and her have decided that they would like to have COMFORT MEASURES ONLY, hold on any IV fluids at this time. Her IV came out and we will not replace. Also would like to have discharge to home on hospice tomorrow as her goal she does not want to do things for life prolongation and she wants COMFORT MEASURES ONLY.
[2017-02-28 06:51] VITALS: BP 159/77
--- NOTE | 2017-02-28 06:51 | NUR ---
PT HAS BEEN RESTING QUIETLY THROUGHOUT THE SHIFT. NO EVIDENCE OF DISTRESS. CONTINUING TURNS AND ORAL CARE Q2H. O2 SATS WNL ON ROOM AIR.
--- NOTE | 2017-02-28 07:51 | Progress Note ---
Subjective General Patient is here for shingles, weakness, decline. Had an ok night. No concerns per nursing. Family is desiring to have home with Hospice at this time as she has been declining for years. Physical Exam Vital Signs / I&Os Vital Signs Date Time Temp Pulse Resp B/P Pulse O2 O2 Flow FiO2 Ox Delivery Rate 02/28 0651 99.9 88 16 159/77 98 Room Air 0.0 02/28 0302 99.5 86 14 175/62 98 Room Air 02/27 2309 100.6 73 18 155/68 97 Room Air 02/27 2000 Room Air 02/27 1847 Room Air 02/27 1818 61 18 154/65 96 Room Air 0.0 02/27 1623 98.6 76 16 180/66 97 Room Air 0.0 I&O 02/28 0000 02/27 1600 02/27 0800 Intake Total Output Total 625 Balance -625 General Appearance Alert, Cooperative HEENT right side of face with reddness some sores Lungs Normal exam Cardiovascular Regular rate and rhythm Abdomen Soft Extremities No edema Skin right upper head that is red. LAB Results Laboratory Tests 02/28 02/27 02/27 0500 1230 1200 Chemistry Plasma Sodium (136 - 145 mmol/L) Cancelled 133 Plasma Potassium (3.5 - 5.1 mmol/L) Cancelled 3.6 Plasma Chloride (98 - 107 mmol/L) Cancelled 95 CO2 (Enzymatic) (21 - 32 mmol/L) Cancelled 30 BUN (7 - 18 mg/dL) Cancelled 21 Creatinine (0.6 - 1.3 mg/dL) Cancelled 0.8 Est GFR ( Amer) (mL/min) Cancelled >60 Est GFR (Non-Af Amer) (mL/min) Cancelled >60 Glucose (70 - 110 mg/dL) Cancelled 110 Lactic Acid (0.4 - 2.0 mmol/L) 0.8 Plasma Calcium (8.5 - 10.1 mg/dL) Cancelled 8.9 Total Bilirubin (0.0 - 1.0 mg/dL) 0.5 AST (15 - 37 U/L) 34 ALT (12 - 78 U/L) 20 Alkaline Phosphatase (46 - 116 U/L) 72 Total Protein (6.4 - 8.2 g/dL) 6.6 Albumin (3.3 - 5.0 g/dL) 3.2 Hematology WBC (4.5 - 11.5 K/uL) Cancelled 7.1 RBC (4.00 - 5.20 M/uL) Cancelled 4.27 Hgb (12.0 - 16.0 gm/dL) Cancelled 13.2 Hct (36.0 - 46.0 %) Cancelled 39.5 MCV (80 - 100 fL) Cancelled 93 MCH (26 - 34 pg) Cancelled 31 RDW (11.6 - 14.8 %) Cancelled 13.3 Neut % (Auto) (50 - 75 %) 71 Lymph % (Auto) (25 - 40 %) 18 [place] % (Auto) (3 - 14 %) 10 Eos % (Auto) (0 - 4 %) 0 Baso % (Auto) (0 - 2 %) 0 Band Neutrophils % (0 - 8 %) 1 Metamyelocytes % (0 - 1 %) 0 Myelocytes (0 - 1 %) 0 Other Cell Type 0 Plt Count, EDTA (150 - 400 K/uL) Cancelled 184 PUBS MCHC (31 - 37 g/dL) Cancelled 33 02/27 1145 Urines Urine Color YELLOW Urine Appearance CLEAR Urine pH (5.0 - 8.0) 7.0 Ur Specific [place] (1.010 - 1.030) 1.010 Urine Protein (NEGATIVE) 1+ Urine Ketones (NEGATIVE) NEGATIVE Urine Blood (NEGATIVE) NEGATIVE Urine Nitrite (NEGATIVE) NEGATIVE Urine Bilirubin (NEGATIVE) NEGATIVE Urine Urobilinogen (0.2 - 1.0 EU/dL) 1.0 Ur Leukocyte Esterase (NEGATIVE) NEGATIVE Urine RBC (0 - 1 rbc/hpf) NONE SEEN Urine WBC (0 - 1 wbc/hpf) 3-5 Ur Epithelial Cells (0 - 5 EPI/hpf) 0-1 Urine Bacteria (NONE SEEN) FEW (1+) Urine Glucose (NEGATIVE) NEGATIVE Urine Comment CULT NOT INDICATED Microbiology Date/Time Procedure - Status Source Growth 02/27 1700 MRSA Screen - RECD NASAL 02/27 1230 Blood Culture - RECD BLOOD 02/27 1225 Influenza Screen - COMP NASALPHAR 02/27 1200 Blood Culture - RECD BLOOD Assessment and Plan Problem List 1. Zoster Plan Patient is on acyclovir and with sores going down. 2. Fever of unknown origin Plan Is with fever related to cellulitis likely 3. Weakness Plan Patient that is going home on hospice.
[2017-02-28] MEDS ORDERED: CEPHALEXIN500 MG PO (07:54)
--- NOTE | 2017-02-28 07:56 | Provider's Discharge Care Plan ---
Problem, Goal, Plan Problem List 1. Zoster Instructions: Take meds as directed, f/u with hospice 2. Fever Instructions: Take meds as directed
--- NOTE | 2017-02-28 07:56 | Provider's Discharge Care Plan ---
Problem, Goal, Plan Problem List 1. Zoster Instructions: Take meds as directed, f/u with hospice 2. Fever Instructions: Take meds as directed
[2017-02-28 10:13] VITALS: BP 168/76
--- NOTE | 2017-02-28 10:34 | NUR ---
pt d/c'd from PT caseload. d/c'ing on hospice.
--- NOTE | 2017-02-28 12:52 | NUR ---
Patients RN reports that there is a pressure ulcer to the left buttock, upon looking in chart there evidence that Dr. Guzman is aware as note of it on 02/25. Pt has Mepilex Foam in place over wound and is going home on Hospice care shortly, discharge orders are in place. Will continue to monitor.
--- NOTE | 2017-02-28 13:18 | NUR ---
pt taken by ambulance to home for hospice care by [facility]. Pt was unable to swallow, and refused any food. Her and daughter were present during the transfer. All personal belongings were given to family.
--- NOTE | 2017-03-01 19:33 | ED DISCHARGE INSTRUCTIONS ---
Patient: POLY LEOS General Instructions [facility] VisitID: [id number] [address] [place] [address] 87y, F Registration Date/Time: 02/27/2017 Acute fever. Acute mental status change with lethargy. Acute generalized weakness. Herpes zoster. (Electronically signed by Holly Chen MD 03/01/2017 19:33)
--- NOTE | 2017-03-01 19:33 | ED DISCHARGE INSTRUCTIONS ---
Patient: POLY LEOS General Instructions [facility] VisitID: [id number] [address] [place] [address] 87y, F Registration Date/Time: 02/27/2017 Acute fever. Acute mental status change with lethargy. Acute generalized weakness. Herpes zoster. (Electronically signed by Holly Chen MD 03/01/2017 19:33)
--- NOTE | 2017-03-01 19:33 | ED MAR SUMMARY ---
..... Medication Administration Record [facility] [address] [place] [place] [address] Patient: POLY LEOS Visit ID: [id number] 87y, F Weight: 49.8 kg Height/Length: 64 in BMI: 18.9 ALLERGIES: Daypro, elevate my liver, Lipitor Given 11:16 02/27/2017 Ekta Hollis R.N. Medication Administered: ACETAMINOPHEN (PEDS) [MO] (ACETAMINOPHEN), Dose: 650 mg MO. Medication Ordered: Acetaminophen PO 1,000 mg (NOW). Start 11:25 02/27/2017 Ekta Hollis R.N., Stop 12:30 02/27/2017 Ekta Hollis R.N. Medication Administered: IV NS (SALINE), Dose: IV Fluids over 1 hour(s), Rate: 1000 mL/hr, Dispensed: 1000 mL bag, Site: #1 right AC. Medication Ordered: IV NS : initial bolus 1000 mL (1000 mL/hr), then none - (NOW). Given 11:26 02/27/2017 Ekta Hollis R.N. Medication Administered: TORADOL [IVP], Dose: 30 mg IVP over 2 minute(s), Site: #1 right AC. Medication Ordered: Toradol IV 30 mg (NOW). Given 13:24 02/27/2017 Ekta Hollis R.N. Medication Administered: ACYCLOVIR [PO], Dose: 800 mg PO. Medication Ordered: Acyclovir PO 800 mg (NOW).
--- NOTE | 2017-03-01 19:33 | ED MED RECONCILIATION SUMMARY ---
Patient: POLY LEOS Medication Reconciliation Report [facility] VisitID: [id number] [address] [place] [address] 87y, F Registration Date/Time: 02/27/2017 Weight: 49.8 kg Height/Length: 64 in. BMI: 18.9 ALLERGIES: Daypro, elevate my liver, Lipitor The patient's Home Medications are listed below: THE FOLLOWING MEDICATIONS NEED TO BE RECONCILED: Acidophilus Pearls Oral x1 in am Acyclovir Oral 800 mg, x5 daily Aspirin Oral (81 mg), daily Atenolol Oral 25 mg, daily Baclofen Oral 10 mg, 3x a day Bilberry Oral (100 mg) Calcium 500/D Oral daily CeleXA Oral 20 mg, daily Citrucel Oral 1 scoop twice daily Cranberry Oral 300mg 1 capsule, 3x a day FentaNYL Transdermal 25 mcg/hr, every 72 hours Klor-Con Oral 10 MEQ daily Miralax powder daily Multiple Vitamins Oral x2 daily Nortriptyline HCl Oral 10 mg, 1-2 in evening Nystatin External OxyCODONE HCl Oral (5 mg) 2-3 tablets, at bedtime Ranitidine HCl Oral 150 mg, 2x a day TraMADol HCl Oral 50 mg, Q6H The source(s) of the original Home Medication information: Not obtained. The following Medications were given to the patient in the Emergency Department: Acetaminophen (Peds) [WI] WI 650 mg, administered: 02/27/2017 11:16:00 AM IV NS IV Fluids bolus 0, then 1000 mL/hr, administered: 02/27/2017 11:25:00 AM Toradol [IVP] IVP 30 mg, administered: 02/27/2017 11:26:00 AM Acyclovir [PO] PO 800 mg, administered: 02/27/2017 1:24:00 PM The following Medications were prescribed to the patient: None.
--- NOTE | 2017-03-01 19:33 | ED MAR SUMMARY ---
..... Medication Administration Record [facility] [address] [place] [address] Patient: POLY LEOS Visit ID: [id number] 87y, F Weight: 49.8 kg Height/Length: 64 in BMI: 18.9 ALLERGIES: Daypro, elevate my liver, Lipitor Given 11:16 02/27/2017 Ekta Hollis R.N. Medication Administered: ACETAMINOPHEN (PEDS) [UT] (ACETAMINOPHEN), Dose: 650 mg UT. Medication Ordered: Acetaminophen PO 1,000 mg (NOW). Start 11:25 02/27/2017 Ekta Hollis R.N., Stop 12:30 02/27/2017 Ekta Hollis R.N. Medication Administered: IV NS (SALINE), Dose: IV Fluids over 1 hour(s), Rate: 1000 mL/hr, Dispensed: 1000 mL bag, Site: #1 right AC. Medication Ordered: IV NS : initial bolus 1000 mL (1000 mL/hr), then none - (NOW). Given 11:26 02/27/2017 Ekta Hollis R.N. Medication Administered: TORADOL [IVP], Dose: 30 mg IVP over 2 minute(s), Site: #1 right AC. Medication Ordered: Toradol IV 30 mg (NOW). Given 13:24 02/27/2017 Ekta Hollis R.N. Medication Administered: ACYCLOVIR [PO], Dose: 800 mg PO. Medication Ordered: Acyclovir PO 800 mg (NOW).
--- NOTE | 2017-03-01 19:33 | ED MED RECONCILIATION SUMMARY ---
Patient: POLY LEOS Medication Reconciliation Report [facility] VisitID: [id number] [address] [place] [address] 87y, F Registration Date/Time: 02/27/2017 Weight: 49.8 kg Height/Length: 64 in. BMI: 18.9 ALLERGIES: Daypro, elevate my liver, Lipitor The patient's Home Medications are listed below: THE FOLLOWING MEDICATIONS NEED TO BE RECONCILED: Acidophilus Pearls Oral x1 in am Acyclovir Oral 800 mg, x5 daily Aspirin Oral (81 mg), daily Atenolol Oral 25 mg, daily Baclofen Oral 10 mg, 3x a day Bilberry Oral (100 mg) Calcium 500/D Oral daily CeleXA Oral 20 mg, daily Citrucel Oral 1 scoop twice daily Cranberry Oral 300mg 1 capsule, 3x a day FentaNYL Transdermal 25 mcg/hr, every 72 hours Klor-Con Oral 10 MEQ daily Miralax powder daily Multiple Vitamins Oral x2 daily Nortriptyline HCl Oral 10 mg, 1-2 in evening Nystatin External OxyCODONE HCl Oral (5 mg) 2-3 tablets, at bedtime Ranitidine HCl Oral 150 mg, 2x a day TraMADol HCl Oral 50 mg, Q6H The source(s) of the original Home Medication information: Not obtained. The following Medications were given to the patient in the Emergency Department: Acetaminophen (Peds) [MA] MA 650 mg, administered: 02/27/2017 11:16:00 AM IV NS IV Fluids bolus 0, then 1000 mL/hr, administered: 02/27/2017 11:25:00 AM Toradol [IVP] IVP 30 mg, administered: 02/27/2017 11:26:00 AM Acyclovir [PO] PO 800 mg, administered: 02/27/2017 1:24:00 PM The following Medications were prescribed to the patient: None.
== END 2017-02-28 14:23 | disposition hospice, home (50) ==
LOC: ED SRH 10:37 → CC SRH 14:26 → TRANS SRH 14:26 → CC SRH 16:10
PROVIDERS: ADMIT Emergency Medicine
DX: B02.39 Other herpes zoster eye disease (principal); B02.30 Zoster ocular disease, unspecified; L03.211 Cellulitis of face; R50.81 Fever presenting with conditions classified elsewhere; G20 Parkinson's disease; R13.19 Other dysphagia; E86.0 Dehydration; R53.1 Weakness; G30.9 Alzheimer's disease, unspecified; F02.80 Dementia in other diseases classified elsewhere, unspecified severity, without behavioral disturbance, psychotic disturbance, mood disturbance, and anxiety; L89.152 Pressure ulcer of sacral region, stage 2
CPT/HCPCS: 83475; 83741; 85241; 90004; 90065; 90070; 90074; 90100; 91400; 91643; 91672; 92031; 92132; 95059